=== PATIENT | female | born 1965 | race Caucasian/White ===

== ENCOUNTER 2016-10-16 04:29 | Emergency (ER) | payer MEDICAID ==
[~2016-10-16] VITALS: Ht 162.6 cm; Wt 65.0 kg
[~2016-10-16 04:29] MED LIST: DIAZ2TAB PO; HYDR-523 PO; VIC GT
[2016-10-16] MEDS ORDERED: DIPHENHYDRAMINE 50MG/ML VIAL IM ONE (07:00)
[2016-10-16] MEDS ORDERED: METHYLPREDNISOLONE SOD SUCC 125 MG/2 ML VIAL IM ONE (07:00)
[2016-10-16 08:04] VITALS: BP 112/72
[2016-10-16] MEDS ORDERED: SODIUM CHLORIDE 0.9% 1,000 ML IV ONE (08:26)
[2016-10-16] MEDS ORDERED: KETOROLAC 30MG/ML VIAL IV STA (08:26)
[2016-10-16] MEDS ORDERED: MORPHINE SULFATE 4 MG/ML CPJ (NOT FOR IM USE) IV STA (08:26)
== END 2016-10-16 08:41 | disposition home or self-care (01) ==
LOC: ER 04:29
DX: T78.40XA Allergy, unspecified, initial encounter (principal); I10 Essential (primary) hypertension; J44.9 Chronic obstructive pulmonary disease, unspecified; F17.200 Nicotine dependence, unspecified, uncomplicated; Z88.8 Allergy status to other drugs, medicaments and biological substances; Z88.6 Allergy status to analgesic agent
CPT/HCPCS: 96372; 99284; J1200; J2930; Z7610; J7030

== ENCOUNTER 2017-02-13 05:01 | Emergency (ER) | payer MEDICAID ==
[~2017-02-13] VITALS: Ht 162.6 cm; Wt 64.0 kg
[2017-02-13] MEDS ORDERED: IPRATROPIUM BROMIDE (0.02%) 0.5MG/2.5ML NEB HHN STA (06:12)
[2017-02-13] MEDS ORDERED: ALBUTEROL (0.083%) 2.5MG/3ML NEB HHN STA (06:12)
[2017-02-13] MEDS ORDERED: ACETAMINOPHEN 325MG TABLET PO ONE (06:15)
[2017-02-13 06:39] LABS: BASOPHILS % 0.5 % (0.0-2.0); EOSINOPHILS % 2.7 % (0.0-5.0); HEMATOCRIT. 41.3 % (36.0-48.0); HEMOGLOBIN. 13.8 g/dL (12.0-16.0); LYMPHOCYTES % 27.5 % (20.0-50.0); MEAN CORPUSCULAR HEMOGLOBIN 30.3 pg (28.0-32.0); MEAN CORPUSCULAR VOLUME 90.4 fL (81.0-99.0); MEAN PLATELET VOLUME 9.6 fl (7.4-10.4); MONOCYTES % 10.3 % (2.0-8.0); PLATELET 218 x1000/uL (130-400); RED BLOOD CELL COUNT 4.57 mill/uL (4.2-5.4); RED CELL DISTRIBUTION WIDTH 13.1 % (11.6-14.6)
[2017-02-13 06:46] LABS: PROTHROMBIN TIME 10.6 sec (9.4-11.6)
[2017-02-13 06:54] LABS: CARBON DIOXIDE 29 mEq/L (21-32); CHLORIDE 104 mEq/L (98-107); TROPONIN I < 0.02 ng/mL (0.00-0.04)
[2017-02-13] MEDS ORDERED: IOHEXOL-350 100 ML BOTTLE ONE (07:46)
[2017-02-13] MEDS ORDERED: KETOROLAC 15MG/ML VIAL IV ONE (08:15)
[2017-02-13 10:05] VITALS: BP 108/75
== END 2017-02-13 10:17 | disposition home or self-care (01) ==
LOC: ER 05:01
DX: J40 Bronchitis, not specified as acute or chronic (principal); J43.9 Emphysema, unspecified; J44.9 Chronic obstructive pulmonary disease, unspecified; I25.10 Atherosclerotic heart disease of native coronary artery without angina pectoris; F17.200 Nicotine dependence, unspecified, uncomplicated; C79.51 Secondary malignant neoplasm of bone; Z85.3 Personal history of malignant neoplasm of breast; Z98.890 Other specified postprocedural states; Z88.8 Allergy status to other drugs, medicaments and biological substances
CPT/HCPCS: 36415; 71275; 80053; 83880; 84484; 85025; 85610; 93005; 94640; 96374; 99285; J1885; J7030; J7611; Q9967; Z7610